=== PATIENT | female | born 1950 | race Caucasian/White ===

== ENCOUNTER → 2021-05-10 11:13 | Outpatient (BNVA) | payer MEDICARE, BC, SELFPAY | PROVIDERS: PCP Internal Medicine; Referring Provider Internal Medicine; Visit Provider Physician Assistant Surgical | DX: Z13.89 Encounter for screening for other disorder (principal) ==

== ENCOUNTER → 2021-06-04 08:15 | Outpatient (BNVA) | payer MEDICARE, BC, SELFPAY | PROVIDERS: PCP Internal Medicine; Visit Provider Surgery | DX: E66.9 Obesity, unspecified (principal); K21.9 Gastro-esophageal reflux disease without esophagitis; G47.30 Sleep apnea, unspecified; I10 Essential (primary) hypertension; E78.5 Hyperlipidemia, unspecified; J45.909 Unspecified asthma, uncomplicated; Z68.39 Body mass index [BMI] 39.0-39.9, adult | CPT/HCPCS: 99202 ==

== ENCOUNTER 2021-06-07 09:42 | Outpatient (REF) | payer MEDICARE, SELFPAY ==
--- NOTE | ~2021-06-07 | XR_ITS ---
EXAMINATION: XR CHEST CLINICAL INFORMATION: Moderate to severe obesity due to excess calories COMPARISON: None TECHNIQUE: 2 views of the chest were obtained. FINDINGS: The lungs are expanded and clear of acute process. Heart size and pulmonary vascularity are normal. There is no pleural effusion or pneumothorax. There is exaggerated thoracic kyphosis with mild anterior wedging of T6, T7, T8 vertebra likely chronic process. No acute fracture seen. There is moderate spondylosis throughout dorsal spine. XR/XR chest 2V IMPRESSION: Exaggerated thoracic kyphosis secondary wedge deformity of T6, T7 and T6 T8 vertebra.. No acute cardiopulmonary process seen.
[2021-06-07 10:21] LABS: MANUAL DIFF FLAG NO
[2021-06-07 10:59] LABS: Basophils Percent Auto 0.1 % (0-2); Eosinophils Absolute Auto 0.1 X10*3/uL (0.0-0.4); Eosinophils Percent Auto 1.4 % (0-4); Hematocrit 37.6 % (37.0-47.0); Hemoglobin 11.1 g/dl (12.0-16.0); Imm Gran Abs Auto 0.02 X10*3/uL (0.00-0.03); Imm Gran Pct Auto 0.3 % (0.0-0.4); Lymphocytes Absolute Auto 2.4 X10*3/uL (1.2-4.9); Lymphocytes Percent Auto 32.4 % (20-40); Mean Corpuscular HGB Conc 29.5 g/dl (31.0-35.0); Mean Corpuscular Hemoglobin 24.2 pg (27.0-33.0); Mean Corpuscular Volume 82.1 fL (80.0-98.0); Mean Platelet Volume 10.6 fL (9.4-12.3); Monocytes Absolute Auto 0.4 X10*3/uL (0.1-1.2); Monocytes Percent Auto 5.9 % (2-11); Neutrophils Absolute Auto 4.3 x10*3/uL (2.0-8.3); Neutrophils Percent Auto 59.9 % (45-73); Platelet Count 394 X10*3/uL (160-400); Red Blood Count 4.58 X10*6/uL (4.20-5.50); Red Cell Distribution Width 16.3 % (11.0-16.0); White Blood Count 7.3 X10*3/uL (4.8-10.8)
[2021-06-07 11:19] LABS: Estimated Average Glucose 137 mg/dL; Hemoglobin A1c % 6.4 %
[2021-06-07 11:23] LABS: Alanine Aminotransferase 15 U/L (0-31); Albumin Level 4.4 g/dL (3.5-5.0); Alkaline Phosphatase 165 U/L (39-117); Anion Gap 15 (12-20); Aspartate Amino Transferase 19 U/L (5-31); Bilirubin Total 0.4 mg/dL (0.0-1.0); Blood Urea Nitrogen 16 mg/dL (9-16); C Reactive Protein 1.86 mg/dL (< or = 0.50); Calcium 10.1 mg/dL (8.4-10.2); Carbon Dioxide 25 mmol/L (22-29); Chloride 107 mmol/L (96-108); Cholesterol 215 mg/dL; Estimated Glomerular Filt Rate > 60; Glucose Random 124 mg/dL (60-115); HDL Cholesterol 63 mg/dL; Iron 50 mcg/dL (30-160); LDL Cholesterol Calculated 132 mg/dl; Percent Iron Saturation 10 % (15-50); Potassium 4.8 mmol/L (3.3-5.1); Sodium 142 mmol/L (135-145); Total Iron Binding Capacity 505 mcg/dL (228-428); Total Protein 7.9 g/dL (6.5-8.0); Triglycerides 104 mg/dL; Unsaturated Iron Binding 455 ug/dL
[2021-06-07 11:48] LABS: Ferritin 9 ng/mL (10-250); Insulin 38 uU/mL (2-29); Vitamin D 25-OH Total 17.7 ng/mL (>30)
[2021-06-07 12:13] LABS: Folate 16.5 ng/mL (> or = 4.0); Vitamin B12 444 pg/mL (200-900)
[2021-06-08 14:31] LABS: Calcium (PTHI) 10.1 mg/dL (8.6-10.4); PTHI 57 pg/mL (16-77)
[2021-06-10 01:42] LABS: Zinc 86 mcg/dL (60-130)
[2021-06-11 06:56] LABS: Vitamin B1 32 nmol/L (8-30)
[2021-06-13 17:51] LABS: Vitamin A 59 mcg/dL (38-98)
== END 2021-06-07 09:43 | disposition home or self-care (01) ==
LOC: HO.XRAY 09:42
PROVIDERS: PCP Internal Medicine; Visit Provider Surgery
DX: E66.01 Morbid (severe) obesity due to excess calories (principal); E78.5 Hyperlipidemia, unspecified; G47.00 Insomnia, unspecified; G47.30 Sleep apnea, unspecified; I10 Essential (primary) hypertension; I73.9 Peripheral vascular disease, unspecified; J45.909 Unspecified asthma, uncomplicated; K21.9 Gastro-esophageal reflux disease without esophagitis; M54.9 Dorsalgia, unspecified
CPT/HCPCS: 36415; 71046; 80053; 80061; 82306; 82607; 82728; 82746; 83036; 83525; 83540; 83970; 84425; 84443; 84590; 84630; 85025; 86140

== ENCOUNTER → 2021-06-18 11:54 | Outpatient (REF) | payer MEDICARE, SELFPAY ==
--- NOTE | 2021-06-18 12:01 | ECG_ITS ---
Test Reason : MORBID OBESITY Blood Pressure : / mmHG Vent. Rate : 091 BPM Atrial Rate : 091 BPM P-R Int : 134 ms QRS Dur : 074 ms QT Int : 362 ms P-R-T Axes : 060 -18 038 degrees QTc Int : 445 ms Normal sinus rhythm Normal ECG No previous ECGs available Referred By: Rayo Frey Electronically Signed By:DYLLAN JENKINS MD
== END ==
LOC: HO.CARD 11:54
PROVIDERS: PCP Internal Medicine; Visit Provider Surgery
DX: Z01.818 Encounter for other preprocedural examination (principal); E66.01 Morbid (severe) obesity due to excess calories; I10 Essential (primary) hypertension; I73.9 Peripheral vascular disease, unspecified; J45.909 Unspecified asthma, uncomplicated
CPT/HCPCS: 93005

== ENCOUNTER → 2021-06-22 14:15 | Outpatient (BNVA) | payer MEDICARE, SELFPAY | PROVIDERS: PCP Internal Medicine; Visit Provider Counselor Mental Health | DX: Z13.89 Encounter for screening for other disorder (principal) ==

== ENCOUNTER 2021-07-01 11:47 | Day surgery (SDC) | payer MEDICARE, SELFPAY ==
--- NOTE | 2021-06-30 10:23 | HO.ANESPROP2 ---
Documented by User: Sindi Mejia NP 06/30/21 10:25 HPI - Anesthesia Eval Consult details Narrative: 70yo F for Upper Endoscopy PMFSH Active Problems Active Problems: All Active Problems (Updated 06/23/21 @ 15:37 by Steffi Barrera) Major depressive disorder, recurrent, mild (Acute) BMI 39.0-39.9,adult (Acute) Obesity (Acute) PVD (peripheral vascular disease) (Acute) GERD (gastroesophageal reflux disease) (Acute) Insomnia (Acute) Back pain (Acute) Hyperlipidemia (Acute) Asthma (Acute) Sleep apnea with use of continuous positive airway pressure (CPAP) (Acute) Hypertension (Acute) Morbid obesity (Acute) Past Medical History Medical History (Updated 06/23/21 @ 15:37 by Steffi Barrera) Asthma Back pain GERD (gastroesophageal reflux disease) Hyperlipidemia Hypertension Insomnia Morbid obesity Obesity PVD (peripheral vascular disease) Sleep apnea with use of continuous positive airway pressure (CPAP) Family History Family History (Updated 06/04/21 @ 14:33 by Gunjan Drake) Mother Diabetes Arthritis Alzheimer disease Father No problems noted. Brother Pancreas cancer Brother Heart problem Brother Depression Brother Depression Brother No problems noted. Brother No problems noted. Daughter No problems noted. Daughter No problems noted. Son Heart problem Son Kidney problem Surgical History Surgical History (Updated 06/04/21 @ 14:27 by Lizeth Kaur LPN) Hx of appendectomy Hx of hysterectomy Hx of tonsillectomy Social History Social History (Updated 06/04/21 @ 14:33 by Gunjan Drake) Alcohol intake: never Patient Tobacco Use Status: Never used Tobacco Meds Allergies Allergy/AdvReac Type Severity Reaction Status Date / Time salmon oil Allergy Intermediate Rash Verified 06/04/21 16:32 aspirin AdvReac Severe bleeding Verified 06/04/21 16:32 ulcer Home Medications Medication Instructions Recorded Confirmed Last Taken Type CPAP (CPAP Machine/Device) 06/04/21 06/04/21 Unknown History albuterol sulfate 90 mcg/actuation 2 puff INHALATION Q6H PRN 06/04/21 06/04/21 Unknown History aerosol inhaler (ProAir HFA) amitriptyline 50 mg tablet 50 mg PO BEDTIME 06/04/21 06/04/21 Unknown History amlodipine 10 mg tablet 10 mg PO DAILY 06/04/21 06/04/21 Unknown History atorvastatin 40 mg tablet 40 mg PO DAILY 06/04/21 06/04/21 Unknown History budesonide-formoterol HFA 160 2 puff INHALATION BID 06/04/21 06/04/21 Unknown History mcg-4.5 mcg/actuation aerosol inhaler (Symbicort) cyclobenzaprine 10 mg tablet 10 mg PO BID tab 06/04/21 06/04/21 Unknown History naproxen 500 mg tablet (Naprosyn) 500 mg PO BID 06/04/21 06/04/21 Unknown History omeprazole 40 mg capsule,delayed 40 mg PO BID 06/04/21 06/04/21 Unknown History release sertraline 100 mg tablet 100 mg PO DAILY 06/04/21 06/04/21 Unknown History venlafaxine 150 mg 150 mg PO DAILY 06/04/21 06/04/21 Unknown History capsule,extended release 24 hr Exam Exam Date and Time: June 30, 2021 1023 Pertinent Lab Results Pertinent Lab Results: Laboratory Tests 06/07/21 06/07/21 10:19 10:19 WBC 7.3 Hgb 11.1 L Hct 37.6 Plt Count 394 Sodium 142 Potassium 4.8 Chloride 107 Carbon Dioxide 25 BUN 16 Creatinine 0.81 Narrative Narrative: EKG 05/2021 Vent. Rate : 091 BPM ? ? Atrial Rate : 091 BPM ?? P-R Int : 134 ms? QRS Dur : 074 ms ? ? QT Int : 362 ms ? ? ? P-R-T Axes : 060 -18 038 degrees ?? QTc Int : 445 ms ? Normal sinus rhythm Normal ECG No previous ECGs available Assessment and Plan Assessment Anesthesia Assessment: Chart Reviewed Documented by User: Nav Buck MD 07/01/21 16:39 PMFSH Past Medical History Medical History (Updated 06/23/21 @ 15:37 by Steffi Barrera) Asthma Back pain GERD (gastroesophageal reflux disease) Hyperlipidemia Hypertension Insomnia Morbid obesity Obesity PVD (peripheral vascular disease) Sleep apnea with use of continuous positive airway pressure (CPAP) Family History Family History (Updated 06/04/21 @ 14:33 by Gunjan Drake) Mother Diabetes Arthritis Alzheimer disease Father No problems noted. Brother Pancreas cancer Brother Heart problem Brother Depression Brother Depression Brother No problems noted. Brother No problems noted. Daughter No problems noted. Daughter No problems noted. Son Heart problem Son Kidney problem Family history of problems with anesthesia: No Surgical History Surgical History (Updated 06/04/21 @ 14:27 by Lizeth Kaur LPN) Hx of appendectomy Hx of hysterectomy Hx of tonsillectomy History of Problems with Anesthesia: No Social History Social History (Updated 06/04/21 @ 14:33 by Gunjan Drake) Alcohol intake: never Patient Tobacco Use Status: Never used Tobacco Meds Allergies Allergy/AdvReac Type Severity Reaction Status Date / Time salmon oil Allergy Intermediate Rash Verified 06/04/21 16:32 aspirin AdvReac Severe bleeding Verified 06/04/21 16:32 ulcer Home Medications Medication Instructions Recorded Confirmed Last Taken Type CPAP (CPAP Machine/Device) 06/04/21 06/04/21 Unknown History albuterol sulfate 90 mcg/actuation 2 puff INHALATION Q6H PRN 06/04/21 06/04/21 Unknown History aerosol inhaler (ProAir HFA) amitriptyline 50 mg tablet 50 mg PO BEDTIME 06/04/21 06/04/21 Unknown History amlodipine 10 mg tablet 10 mg PO DAILY 06/04/21 06/04/21 Unknown History atorvastatin 40 mg tablet 40 mg PO DAILY 06/04/21 06/04/21 Unknown History budesonide-formoterol HFA 160 2 puff INHALATION BID 06/04/21 06/04/21 Unknown History mcg-4.5 mcg/actuation aerosol inhaler (Symbicort) cyclobenzaprine 10 mg tablet 10 mg PO BID tab 06/04/21 06/04/21 Unknown History naproxen 500 mg tablet (Naprosyn) 500 mg PO BID 06/04/21 06/04/21 Unknown History omeprazole 40 mg capsule,delayed 40 mg PO BID 06/04/21 06/04/21 Unknown History release sertraline 100 mg tablet 100 mg PO DAILY 06/04/21 06/04/21 Unknown History venlafaxine 150 mg 150 mg PO DAILY 06/04/21 06/04/21 Unknown History capsule,extended release 24 hr Exam Airway Mallampati Class: II TM Dist: >3cm Partial: Upper Loose/Missing/Broken Teeth: Yes Heart: rrr Lungs: bl breath sounds Assessment and Plan Assessment Anesthesia Assessment: Anesthesia Plan Discussed Final Anesthetic Review Family History of Problems with Anesthesia: No History of Problems with Anesthesia: No NPO: Yes ASA Class: III Final Preanesthetic Review: Meds/Allgs Chart Reviewed, Consent Obtained/Reviewed and Anes Risks/Benef Reviewed Patient Risk: Intermediate Procedure Risk: Intermediate Anesthetic Plan Anesthetic Plan: MAC: Disposition: Standard PACU
--- NOTE | 2021-06-30 17:44 | MHC.SHP ---
Pre-Procedural Eval Section A Date of Service: 06/30/21 The patient is an INPATIENT: No The History & Physical has been completed within 30 days and I have reviewed it.: Yes Section B Chief Complaint: reflux Relevant Family History (Specify if Yes): No Relevant Social History: None Present Medications: None Medical History: No relevant PMH History of Previous Operations: No relevant previous surgery Allergies: Allergies Allergy/AdvReac Type Severity Reaction Status Date / Time salmon oil Allergy Intermediate Rash Verified 06/04/21 16:32 aspirin AdvReac Severe bleeding Verified 06/04/21 16:32 ulcer Review of Systems Sugical H&P ROS: Negative: Constitution, Cardiovascular, Respiratory, Neurological, Psychiatric, Hem-Onc, Allergic/Immunologic, Gastrointestinal, Genitourinary, Musculoskeletal, Integumentary, Endocrine and Eyes/Ears/Nose/Throat Exam Surgical H&P Exam: Normal: HEENT, Normal: Heart, Normal: Lungs, Normal: Extremities, Normal: Abdomen, Normal: Skin and Normal: Neurological Plan Diagnosis/Plan: Unchanged (EGD to assess for esophagitis and H pylori. Patient us unable to be off the PPIs. Risksof bleeding and perforation were discussed with the patient.) I have reviewed the history and physical and performed a pertinent physical examination on my patient. No changes have occurred unless specified.
[2021-07-01 12:19] VITALS: BMI 39.1
[2021-07-01] MEDS: Lactated Ringers 1,000 ML 80 ML IVCONT (12:40)
--- NOTE | 2021-07-01 13:00 | P.BOP_ITS ---
Brief Operative Note Date of Service: 07/01/21 Pre-op diagnosis: GERD, inability to discontinue PPI Post-op diagnosis: same (& moderate size diaphragmatic hernia) Procedure: PROCEDURE DATE: 07/01/2021 PREOPERATIVE DIAGNOSIS: GERD POSTOPERATIVE DIAGNOSIS: ?Same as above. 1) moderate size hiatal hernia PROCEDURE: [id number] with biopsies Surgeon: ?Galdino Frey M.D.. Ph.D. Boiler Shop Supervisor: None ? Anesthesia: IV sedation Estimated blood loss: ?Minimal FINDINGS AND PROCEDURE: ? OPERATIVE INDICATIONS: ?The patient is a 70 year old female known to me who is interested in bariatric surgery. The patient has severe GERD and is unable to discontinue PPIs for 2 weeks to perform the H pylori breath test. Based on this information I recommended an upper endoscopy to evaluate the patient's symptoms. Risks and complications of the surgery were discussed with the patient in advance particularly the possibility of perforation or bleeding that may require surgical intervention. The patient understood the risks and was in agreement with the plan. ? PROCEDURE: After informed consent was obtained by the patient, the patient was ?transferred to the Operating Room and was placed in the supine position.? After successful induction of IV sedation, a mouth block was inserted and the patient was placed in the left lateral decubitus position. An upper endoscopy was performed next, the oropharynx and esophagus appeared within the normal limits. There was a moderate size 4-5cm hiatal hernia. The z- line was smooth. Two biopsies were obtained from the distal esohagus 2-3 cm proximal to the GE junction and two additional biopsies from the GE junction. The stomach was entered and it appeared to be of normal size. There was no gastritis at distal antrum. There was no stricture or ulcer. Biopsies were obtained from the gastric fundus as well as the distal antrum. No significant bleeding was noted from any of the biopsy sites. The scope was then advanced into the duodenum which appeared to be normal as well. At that point the duodenum ?and the sleeve were decompressed and the scope was withdrawn from the patient's mouth. The patient extubated and was transferred in stable condition to the Recovery Room for further care. I was present and performed all steps of the procedure. There were no residents to assist with this case. Galdino Frey M.D., Ph.D. Surgeon: Rayo Frey MD Anesthesia: MAC Was an Boiler Shop Supervisor used for this Procedure?: No Estimated blood loss (mL): 0 IV fluids (mL): 400 Urine output (mL): 0 (No Ly to record) Pathology: other (GEJ x1, distal esophagus, fundus x1, antrum x1) Condition: stable Disposition: PACU
[2021-07-01 13:46] VITALS: BP 126/76; PULSE 87; RESP 16; TEMP 36.4; O2SAT 95
[2021-07-01 14:00] VITALS: BP 137/71; PULSE 79; RESP 16; O2SAT 97
[2021-07-01 14:15] VITALS: BP 134/65; PULSE 79; RESP 16; TEMP 36.4; O2SAT 97
== END 2021-07-01 15:26 | disposition home or self-care (01) ==
PROVIDERS: PCP Internal Medicine; Visit Provider Surgery
PROC: 0DJ08ZZ Inspection of Upper Intestinal Tract, Via Natural or Artificial Opening Endoscopic (ICD-10-PCS; CPT 43235; principal; 2021-07-01 12:50)
DX: K21.9 Gastro-esophageal reflux disease without esophagitis (principal); K22.70 Barrett's esophagus without dysplasia; B96.81 Helicobacter pylori [H. pylori] as the cause of diseases classified elsewhere; K44.9 Diaphragmatic hernia without obstruction or gangrene; E66.01 Morbid (severe) obesity due to excess calories; Z68.39 Body mass index [BMI] 39.0-39.9, adult; M54.9 Dorsalgia, unspecified; J45.909 Unspecified asthma, uncomplicated; I10 Essential (primary) hypertension; I73.9 Peripheral vascular disease, unspecified; G47.00 Insomnia, unspecified; G47.33 Obstructive sleep apnea (adult) (pediatric); E78.5 Hyperlipidemia, unspecified; Z79.899 Other long term (current) drug therapy; Z88.8 Allergy status to other drugs, medicaments and biological substances; Z99.89 Dependence on other enabling machines and devices
CPT/HCPCS: 43239; 88305; 88342

== ENCOUNTER → 2021-07-05 14:42 | Outpatient (BNVA) | payer MEDICARE, SELFPAY | PROVIDERS: PCP Internal Medicine; Referring Provider Internal Medicine; Visit Provider Dietitian, Registered | DX: E66.9 Obesity, unspecified (principal) | CPT/HCPCS: 97802 ==

== ENCOUNTER → 2021-07-13 10:30 | Outpatient (BNVA) | payer OTHER, MEDICARE, SELFPAY | PROVIDERS: PCP Internal Medicine; Visit Provider Counselor Mental Health | DX: F33.0 Major depressive disorder, recurrent, mild (principal); E66.9 Obesity, unspecified | CPT/HCPCS: 90832 ==

== ENCOUNTER → 2021-07-16 11:58 | Outpatient (BNVA) | payer MEDICARE, SELFPAY | PROVIDERS: PCP Internal Medicine; Referring Provider Internal Medicine; Visit Provider Physician Assistant | DX: Z13.89 Encounter for screening for other disorder (principal) ==

== ENCOUNTER → 2021-07-19 08:03 | Outpatient (BNVA) | payer MEDICARE, SELFPAY | PROVIDERS: PCP Internal Medicine; Visit Provider Surgery | DX: Z13.89 Encounter for screening for other disorder (principal) | CPT/HCPCS: Q3014 ==

== ENCOUNTER → 2021-07-27 11:06 | Outpatient (BNVA) | payer MEDICARE, SELFPAY | PROVIDERS: PCP Internal Medicine; Visit Provider Physician Assistant | DX: Z13.89 Encounter for screening for other disorder (principal) ==

== ENCOUNTER → 2021-08-05 13:40 | Outpatient (BNVA) | payer MEDICARE, SELFPAY | PROVIDERS: PCP Internal Medicine; Referring Provider Surgery; Visit Provider Dietitian, Registered | DX: E66.9 Obesity, unspecified (principal); Z68.38 Body mass index [BMI] 38.0-38.9, adult | CPT/HCPCS: 97803 ==

== ENCOUNTER 2021-08-10 09:29 | Outpatient (REF) | payer MEDICARE, SELFPAY ==
--- NOTE | ~2021-08-10 | US_ITS ---
EXAMINATION: US COMPLETE ABDOMEN WITH LIVER ELASTOGRAPHY CLINICAL INFORMATION: Morbid obesity COMPARISON: March 24, 2016 TECHNIQUE: Real-time imaging of the abdominal viscera. Noninvasive ultrasound liver fibrosis assessment is performed using Hao ElastPQ point quantification shear wave elastography (2D-SWE) with a C5-2 MHz transducer. Multiple elastography samples are obtained. FINDINGS: PANCREAS: Normal. The visualized pancreatic head and body are normal in appearance. The remainder of the pancreas is obscured from visualization by the overlying bowel gas. ABDOMINAL AORTA: The proximal, middle, and distal aortic segments are normal in caliber. INFERIOR VENA CAVA: Visualized portions are normal. LIVER: There is diffusely increased echogenicity of the liver consistent with fatty infiltration. No mass or intrahepatic bile duct dilatation identified. The right lobe measures 14.4 cm in length. The left lobe measures 10.4 cm in length. Portal flow is hepatopedal Shear wave liver elastography median stiffness is 2.45 m/s (reference: normal median stiffness is 1.3 m/s or less). IQR/median stiffness to assess sampling precision is 0.14 (reference: good quality data set is IQR/median stiffness of 0.15 or less). GALLBLADDER: Normal. The gallbladder is physiologically distended without evidence of stones, sludge, polyps, wall thickening or pericholecystic fluid. COMMON BILE DUCT: Normal in caliber measuring 0.6 cm in diameter. RIGHT KIDNEY: Normal. No hydronephrosis. No renal calculi or focal parenchymal lesions. The kidney measures 10.5 cm in maximum dimension. LEFT KIDNEY: Normal. No hydronephrosis. No renal calculi or focal parenchymal lesions. The kidney measures 10.4 cm in maximum dimension. SPLEEN: Normal. The spleen measures 10.1 cm in maximum dimension. FREE FLUID: None. US/US abdomen comp w elastography IMPRESSION: 1. Diffusely increased echogenicity of the liver consistent with fatty infiltration. 2. Liver elastography: Measurements are suggestive of clinically significant portal hypertension. REFERENCE: Society of Radiologists in Ultrasound Liver Stiffness Thresholds (2020): LIVER STIFFNESS THRESHOLDS: *Liver Stiffness equal or less than 1.3 m/s: High probability of being normal. *Liver Stiffness less than 1.7 m/s: In the absence of other known clinical signs, rules out compensated advanced chronic liver disease. *Liver Stiffness 1.7-2.1 m/s: Suggestive of compensated advanced chronic liver disease but need further test for confirmation. *Liver Stiffness over 2.1 m/s: Rules in compensated advanced chronic liver disease. *Liver Stiffness over 2.4 m/s: Suggestive of clinically significant portal hypertension. QUALITY OF DATA SET: *IQR/Median value equal or less than 0.15 implies a quality data set. *IQR/Median value over 0.15 implies a poor quality data set. SIGNIFICANT CHANGE FROM PRIOR EXAM: Significant change if liver stiffness measurement is 10% or greater from prior exam. OTHER CONSIDERATIONS: The stage of liver fibrosis may be overestimated in the setting of acute hepatitis, liver inflammation, elevated liver function tests, hepatic vascular congestion, obstructive cholestasis, non-fasting state, and infiltrative diseases such as amyloidosis and lymphoma. In some patients with NAFLD, the liver stiffness thresholds for compensated advanced chronic liver disease may be lower. In causes other than viral hepatitis and NAFLD, liver stiffness thresholds are not well established.
--- NOTE | ~2021-08-10 | FL_ITS ---
EXAMINATION: XR FLUOROSCOPY UPPER GI WITH AIR CLINICAL INFORMATION: Obesity. Preop bariatric surgery COMPARISON: None TECHNIQUE: Upper GI was performed using thin and thick barium and effervescent granules FINDINGS: There is significant gastroesophageal reflux. There is a small sliding hiatal hernia. There are tertiary contractions in the esophagus and mild mucosal irregularity questionable for mild esophagitis. No mass or stricture is seen. Stomach and duodenum are otherwise normal appearing. No fold thickening, mass, ulcer or stricture is seen. FLUOROSCOPY TIME: 0.9 DOSE AREA PRODUCT: 9.2 Viveros per centimeter squared. 31 saved fluoroscopic images. FL/FL upper GI w air IMPRESSION: Significant gastroesophageal reflux and question esophagitis. Small sliding-type hiatal hernia.
== END 2021-08-10 09:30 | disposition home or self-care (01) ==
LOC: HO.US 09:29
PROVIDERS: Visit Provider Surgery
DX: Z01.818 Encounter for other preprocedural examination (principal); E66.01 Morbid (severe) obesity due to excess calories; K21.9 Gastro-esophageal reflux disease without esophagitis; I10 Essential (primary) hypertension; I73.9 Peripheral vascular disease, unspecified; J45.909 Unspecified asthma, uncomplicated
CPT/HCPCS: 74246; 76705; 76981

== ENCOUNTER → 2021-08-30 11:39 | Outpatient (BNVA) | payer MEDICARE, SELFPAY | PROVIDERS: PCP Internal Medicine; Visit Provider Physician Assistant | DX: Z13.89 Encounter for screening for other disorder (principal) ==

== ENCOUNTER 2021-09-13 12:12 | Day surgery (SDC) | payer MEDICARE, SELFPAY ==
--- NOTE | 2021-09-10 14:23 | HO.ANESPROP2 ---
HPI - Anesthesia Eval Consult details Narrative: 70yo F for Upper Endoscopy PMFSH Active Problems Active Problems: All Active Problems (Updated 07/19/21 @ 10:17 by Rayo Frey MD) Vitamin B12 deficiency (Acute) Vitamin D deficiency (Acute) Anemia (Acute) Major depressive disorder, recurrent, mild (Acute) BMI 39.0-39.9,adult (Acute) Obesity (Acute) PVD (peripheral vascular disease) (Acute) GERD (gastroesophageal reflux disease) (Acute) Insomnia (Acute) Back pain (Acute) Hyperlipidemia (Acute) Asthma (Acute) Sleep apnea with use of continuous positive airway pressure (CPAP) (Acute) Hypertension (Acute) Morbid obesity (Acute) Past Medical History Medical History Anemia Asthma GERD (gastroesophageal reflux disease) Hyperlipidemia Hypertension Major depressive disorder, recurrent, mild Morbid obesity PVD (peripheral vascular disease) Sleep apnea with use of continuous positive airway pressure (CPAP) Family History Family History Mother Diabetes Arthritis Alzheimer disease Father No problems noted. Brother Pancreas cancer Brother Heart problem Brother Depression Brother Depression Brother No problems noted. Brother No problems noted. Daughter No problems noted. Daughter No problems noted. Son Heart problem Son Kidney problem Family history of problems with anesthesia: No Surgical History Surgical History (Updated 06/04/21 @ 14:27 by Lizeth Kaur LPN) Hx of appendectomy Hx of hysterectomy Hx of tonsillectomy History of Problems with Anesthesia: No Social History Social History (Updated 06/04/21 @ 14:33 by Gunjan Drake) Alcohol intake: never Patient Tobacco Use Status: Never used Tobacco Meds Allergies Allergy/AdvReac Type Severity Reaction Status Date / Time salmon oil Allergy Intermediate Rash Verified 06/04/21 16:32 Iodinated Contrast Media Allergy Hives Verified 09/13/21 13:09 [IV Contrast Dye] aspirin AdvReac Severe bleeding Verified 06/04/21 16:32 ulcer Home Medications Medication Instructions Recorded Confirmed Last Taken Type CPAP (CPAP Machine/Device) 06/04/21 06/04/21 Unknown History albuterol sulfate 90 mcg/actuation 2 puff inhalation Q6H PRN 06/04/21 06/04/21 Unknown History aerosol inhaler (ProAir HFA) amitriptyline 50 mg tablet 50 mg PO BEDTIME 06/04/21 06/04/21 Unknown History amlodipine 10 mg tablet 10 mg PO DAILY 06/04/21 06/04/21 Unknown History atorvastatin 40 mg tablet 40 mg PO DAILY 06/04/21 06/04/21 Unknown History budesonide-formoterol HFA 160 2 puff inhalation BID 06/04/21 06/04/21 Unknown History mcg-4.5 mcg/actuation aerosol inhaler (Symbicort) cyclobenzaprine 10 mg tablet 10 mg PO BID 06/04/21 06/04/21 Unknown History naproxen 500 mg tablet (Naprosyn) 500 mg PO BID 06/04/21 06/04/21 Unknown History sertraline 100 mg tablet 100 mg PO DAILY 06/04/21 06/04/21 Unknown History venlafaxine 150 mg 150 mg PO DAILY 06/04/21 06/04/21 Unknown History capsule,extended release 24 hr Exam Exam Date and Time: September 10, 2021 1423 Pertinent Lab Results Pertinent Lab Results: Laboratory Tests 06/07/21 06/07/21 10:19 10:19 WBC 7.3 Hgb 11.1 L Hct 37.6 Plt Count 394 Sodium 142 Potassium 4.8 Chloride 107 Carbon Dioxide 25 BUN 16 Creatinine 0.81 Narrative Narrative: EKG 05/2021 Vent. Rate : 091 BPM ? ? Atrial Rate : 091 BPM ?? P-R Int : 134 ms? QRS Dur : 074 ms ? ? QT Int : 362 ms ? ? ? P-R-T Axes : 060 -18 038 degrees ?? QTc Int : 445 ms ? Normal sinus rhythm Normal ECG No previous ECGs available Assessment and Plan Assessment Anesthesia Assessment: Chart Reviewed Final Anesthetic Review Family History of Problems with Anesthesia: No History of Problems with Anesthesia: No
--- NOTE | 2021-09-11 09:53 | MHC.SHP ---
Pre-Procedural Eval Section A Date of Service: 09/11/21 The History & Physical has been completed within 30 days and I have reviewed it.: Yes Section B Chief Complaint: reflux,h.pylori Relevant Family History (Specify if Yes): No Relevant Social History: None Present Medications: None Medical History: No relevant PMH History of Previous Operations: No relevant previous surgery Allergies: Allergies Allergy/AdvReac Type Severity Reaction Status Date / Time salmon oil Allergy Intermediate Rash Verified 06/04/21 16:32 aspirin AdvReac Severe bleeding Verified 06/04/21 16:32 ulcer Review of Systems Sugical H&P ROS: Negative: Constitution, Cardiovascular, Respiratory, Neurological, Psychiatric, Hem-Onc, Allergic/Immunologic, Gastrointestinal, Genitourinary, Musculoskeletal, Integumentary, Endocrine and Eyes/Ears/Nose/Throat Exam Surgical H&P Exam: Normal: HEENT, Normal: Heart, Normal: Lungs, Normal: Extremities, Normal: Abdomen, Normal: Skin and Normal: Neurological Plan Diagnosis/Plan: Unchanged (EGD to assess GERD severity and hiatal hernia. Unable to stop PPI for H pylori. Risks of bleeding and perforation were discussed) I have reviewed the history and physical and performed a pertinent physical examination on my patient. No changes have occurred unless specified.
[2021-09-13 12:37] VITALS: BMI 35.6
[2021-09-13 12:38] VITALS: BP 151/73; PULSE 100; RESP 18; TEMP 36.9; O2SAT 97
[2021-09-13] MEDS: Lactated Ringers 1,000 ML 100 ML IVCONT (12:49)
--- NOTE | 2021-09-13 13:15 | HO.ANESPROP2 ---
[facility] Active Problems Active Problems: All Active Problems (Updated 09/10/21 @ 14:24 by Sindi Mejia NP) Vitamin B12 deficiency (Acute) Vitamin D deficiency (Acute) BMI 39.0-39.9,adult (Acute) Obesity (Acute) Insomnia (Acute) Back pain (Acute) Past Medical History Medical History Anemia Asthma GERD (gastroesophageal reflux disease) Hyperlipidemia Hypertension Major depressive disorder, recurrent, mild Morbid obesity PVD (peripheral vascular disease) Sleep apnea with use of continuous positive airway pressure (CPAP) Family History Family History Mother Diabetes Arthritis Alzheimer disease Father No problems noted. Brother Pancreas cancer Brother Heart problem Brother Depression Brother Depression Brother No problems noted. Brother No problems noted. Daughter No problems noted. Daughter No problems noted. Son Heart problem Son Kidney problem Family history of problems with anesthesia: No Surgical History Surgical History (Updated 06/04/21 @ 14:27 by Lizeth Kaur LPN) Hx of appendectomy Hx of hysterectomy Hx of tonsillectomy History of Problems with Anesthesia: No Social History Social History (Updated 06/04/21 @ 14:33 by Gunjan Drake) Alcohol intake: never Patient Tobacco Use Status: Never used Tobacco Use of substances other than those prescribed or required for medical reasons: No Are you DNR?: No Advance Directives: No Advance Directives Information Provided: Yes Meds Allergies Allergy/AdvReac Type Severity Reaction Status Date / Time salmon oil Allergy Intermediate Rash Verified 06/04/21 16:32 Iodinated Contrast Media Allergy Hives Verified 09/13/21 13:09 [IV Contrast Dye] aspirin AdvReac Severe bleeding Verified 06/04/21 16:32 ulcer Active Medications: Current Medications Albuterol Sulfate (Albuterol Sulfate (0.083%) 2.5 Mg/3 Ml Vial.Neb) 2.5 mg INHALE ONCE PRN PRN Reason: Shortness of Breath/Wheezing Lactated Ringer's (Lr) 1,000 mls @ 80 mls/hr IVCONT .[id number] HALLIE Lactated Ringer's (Lr) 1,000 mls @ 100 mls/hr IVCONT .Q10H HALLIE Last Admin: 09/13/21 12:49 Dose: 100 mls/hr Home Medications Medication Instructions Recorded Confirmed Last Taken Type CPAP (CPAP Machine/Device) 06/04/21 06/04/21 Unknown History albuterol sulfate 90 mcg/actuation 2 puff inhalation Q6H PRN 06/04/21 06/04/21 Unknown History aerosol inhaler (ProAir HFA) amitriptyline 50 mg tablet 50 mg PO BEDTIME 06/04/21 06/04/21 Unknown History amlodipine 10 mg tablet 10 mg PO DAILY 06/04/21 06/04/21 Unknown History atorvastatin 40 mg tablet 40 mg PO DAILY 06/04/21 06/04/21 Unknown History budesonide-formoterol HFA 160 2 puff inhalation BID 06/04/21 06/04/21 Unknown History mcg-4.5 mcg/actuation aerosol inhaler (Symbicort) cyclobenzaprine 10 mg tablet 10 mg PO BID 06/04/21 06/04/21 Unknown History naproxen 500 mg tablet (Naprosyn) 500 mg PO BID 06/04/21 06/04/21 Unknown History sertraline 100 mg tablet 100 mg PO DAILY 06/04/21 06/04/21 Unknown History venlafaxine 150 mg 150 mg PO DAILY 06/04/21 06/04/21 Unknown History capsule,extended release 24 hr Exam Exam Date and Time: September 13, 2021 1315 Height,Weight and Vital Signs: Height 5 ft 6 in Weight 100.244 kg Last Vital Signs Temp 98.5 F 09/13/21 12:38 Pulse 100 09/13/21 12:38 Resp 18 09/13/21 12:38 BP 151/73 H 09/13/21 12:38 Pulse Ox 97 09/13/21 12:38 O2 Del Method 09/13/21 12:38 Airway Mallampati Class: III TM Dist: >3cm Neck ROM: Full Denture: Upper Loose/Missing/Broken Teeth: No Heart: rrr Lungs: clear Assessment and Plan Final Anesthetic Review Family History of Problems with Anesthesia: No History of Problems with Anesthesia: No NPO: Yes ASA Class: III Final Preanesthetic Review: No Changes in Pt Med Stat, Meds/Allgs Chart Reviewed, Consent Obtained/Reviewed and Anes Risks/Benef Reviewed Patient Risk: Intermediate Procedure Risk: Low Anesthetic Plan Anesthetic Plan: MAC: Disposition: Standard PACU
--- NOTE | 2021-09-13 14:18 | PM.OP ---
Brief Operative Note Date of Service: 09/13/21 Pre-op diagnosis: GERD, inability to discontinue PPI for H pylori testing Post-op diagnosis: same Procedure: PROCEDURE DATE: 09/13/2021 PREOPERATIVE DIAGNOSIS: GERD POSTOPERATIVE DIAGNOSIS: ?Same as above. 1) moderate-sizel hiatal hernia, PROCEDURE: [id number] with biopsies Surgeon: ?Galdino Frey M.D.. Ph.D. Account Administrator: None ? Anesthesia: IV sedation Estimated blood loss: ?Minimal FINDINGS AND PROCEDURE: ? OPERATIVE INDICATIONS: ?The patient is a 70 year old female known to me who is interested in bariatric surgery. The patient has severe GERD and is unable to discontinue PPIs for 2 weeks to perform the H pylori breath test. Based on this information I recommended an upper endoscopy to evaluate the patient's symptoms. Risks and complications of the surgery were discussed with the patient in advance particularly the possibility of perforation or bleeding that may require surgical intervention. The patient understood the risks and was in agreement with the plan. ? PROCEDURE: After informed consent was obtained by the patient, the patient was ?transferred to the Operating Room and was placed in the supine position.? After successful induction of IV sedation, a mouth block was inserted and the patient was placed in the left lateral decubitus position. An upper endoscopy was performed next, the oropharynx and esophagus appeared within the normal limits. There was a 4cm hiatal hernia (Z-line at 34cm and crural identation at 38cm from incisors).. The z-line was smooth. Two biopsies were obtained from the distal esohagus 2-3 cm proximal to the GE junction and two additional biopsies from the GE junction. The stomach was entered and it appeared to be of normal size. There was mild gastritis at distal antrum. There was no stricture or ulcer. Biopsies were obtained from the proximal sleeve as well as the distal antrum. No significant bleeding was noted from any of the biopsy sites. The scope was then advanced into the duodenum which appeared to be normal as well. A biopsy was obtained from the proximal duodenum as well. At that point the duodenum ?and the sleeve were decompressed and the scope was withdrawn from the patient's mouth. The patient extubated and was transferred in stable condition to the Recovery Room for further care. I was present and performed all steps of the procedure. There were no residents to assist with this case. Galdino Frey M.D., Ph.D. Surgeon: Rayo Frey MD Anesthesia: MAC Was an Account Administrator used for this Procedure?: No Estimated blood loss (mL): 0 IV fluids (mL): 400 Urine output (mL): 0 (No Ly to record) Pathology: other (1) GEJ x2, 2) distal esophagus x2, 3) proximal sleeve x1, 4) antrum x1, 5) duodenum 1st portion x1) Condition: stable Disposition: PACU
[2021-09-13 14:46] VITALS: BP 144/80; PULSE 93; RESP 20; TEMP 36.3; O2SAT 97
[2021-09-13 15:01] VITALS: BP 153/65; PULSE 89; RESP 20; TEMP 36.7; O2SAT 98
== END 2021-09-13 16:00 | disposition home or self-care (01) ==
PROVIDERS: PCP Internal Medicine; Visit Provider Surgery
PROC: 0DJ08ZZ Inspection of Upper Intestinal Tract, Via Natural or Artificial Opening Endoscopic (ICD-10-PCS; CPT 43235; principal; 2021-09-13 13:30)
DX: K21.9 Gastro-esophageal reflux disease without esophagitis (principal); B96.81 Helicobacter pylori [H. pylori] as the cause of diseases classified elsewhere; K44.9 Diaphragmatic hernia without obstruction or gangrene; E78.5 Hyperlipidemia, unspecified; J45.909 Unspecified asthma, uncomplicated; D64.9 Anemia, unspecified; I10 Essential (primary) hypertension; E55.9 Vitamin D deficiency, unspecified; E53.8 Deficiency of other specified B group vitamins; E66.9 Obesity, unspecified; Z68.39 Body mass index [BMI] 39.0-39.9, adult; Z79.899 Other long term (current) drug therapy; Z88.8 Allergy status to other drugs, medicaments and biological substances; Z91.041 Radiographic dye allergy status
CPT/HCPCS: 43239; 88305; 88342

== ENCOUNTER → 2021-09-14 09:15 | Outpatient (BNVA) | payer MEDICARE, SELFPAY | PROVIDERS: PCP Internal Medicine; Visit Provider Dietitian, Registered | DX: E66.9 Obesity, unspecified (principal); Z68.36 Body mass index [BMI] 36.0-36.9, adult; Z71.3 Dietary counseling and surveillance | CPT/HCPCS: 97803 ==

== ENCOUNTER → 2021-10-01 11:33 | Outpatient (BNVA) | payer MEDICARE, SELFPAY | PROVIDERS: PCP Internal Medicine; Visit Provider Physician Assistant Surgical | DX: E66.9 Obesity, unspecified (principal); Z68.38 Body mass index [BMI] 38.0-38.9, adult | CPT/HCPCS: 99212 ==

== ENCOUNTER → 2021-10-29 13:02 | Outpatient (BNVA) | payer MEDICARE, SELFPAY | PROVIDERS: PCP Internal Medicine; Visit Provider Dietitian, Registered | DX: E66.01 Morbid (severe) obesity due to excess calories (principal); Z68.39 Body mass index [BMI] 39.0-39.9, adult | CPT/HCPCS: 97803 ==

== ENCOUNTER → 2021-11-18 14:18 | Outpatient (BNVA) | payer MEDICARE, SELFPAY | PROVIDERS: PCP Internal Medicine; Visit Provider Dietitian, Registered | DX: E66.9 Obesity, unspecified (principal); Z68.38 Body mass index [BMI] 38.0-38.9, adult; Z71.3 Dietary counseling and surveillance | CPT/HCPCS: 97803 ==

== ENCOUNTER → 2021-12-01 08:12 | Outpatient (BNVA) | payer MEDICARE, SELFPAY | PROVIDERS: PCP Internal Medicine; Visit Provider Surgery | DX: E66.9 Obesity, unspecified (principal); Z68.38 Body mass index [BMI] 38.0-38.9, adult | CPT/HCPCS: Q3014 ==

== ENCOUNTER → 2021-12-31 08:26 | Outpatient (BNVA) | payer MEDICARE, SELFPAY | PROVIDERS: PCP Internal Medicine; Visit Provider Surgery | DX: E66.9 Obesity, unspecified (principal); K21.9 Gastro-esophageal reflux disease without esophagitis; G47.30 Sleep apnea, unspecified; Z68.37 Body mass index [BMI] 37.0-37.9, adult | CPT/HCPCS: Q3014 ==

== ENCOUNTER → 2022-04-25 14:37 | Outpatient (BNVA) | payer MEDICARE, SELFPAY | PROVIDERS: PCP Internal Medicine; Visit Provider Internal Medicine | DX: G90.529 Complex regional pain syndrome I of unspecified lower limb (principal); M47.816 Spondylosis without myelopathy or radiculopathy, lumbar region; M17.0 Bilateral primary osteoarthritis of knee | CPT/HCPCS: 99202 ==

== ENCOUNTER 2022-08-03 06:03 | Outpatient (REF) | payer MEDICARE, SELFPAY ==
--- NOTE | ~2022-08-03 | FL_ITS ---
EXAMINATION: XR FLUOROSCOPY WITH IMAGES CLINICAL INFORMATION: Lower limb complex regional pain syndrome COMPARISON: None available. TECHNIQUE: Fluoroscopy Supervised By: Dr. Itz Chavez. Fluoroscopy Time: 0.4. Cumulative Dose: 25 mGy. DAP: 3 Gycm2. Images: 4. FINDINGS: Images demonstrate needle placement and contrast injection adjacent to the right anterior lateral L2 vertebral body FL/FL guidance in treatment room IMPRESSION: Fluoroscopic guidance for pain management procedure
== END 2022-08-03 06:04 | disposition home or self-care (01) ==
LOC: CF 06:03
PROVIDERS: Visit Provider Internal Medicine
DX: G90.521 Complex regional pain syndrome I of right lower limb (principal)
CPT/HCPCS: 64520; J3301

== ENCOUNTER → 2022-08-19 10:30 | Outpatient (BNVA) | payer MEDICARE, SELFPAY | PROVIDERS: PCP Internal Medicine; Visit Provider Internal Medicine | DX: M47.816 Spondylosis without myelopathy or radiculopathy, lumbar region (principal); M54.16 Radiculopathy, lumbar region; M79.671 Pain in right foot; M79.672 Pain in left foot; M17.0 Bilateral primary osteoarthritis of knee; G90.529 Complex regional pain syndrome I of unspecified lower limb | CPT/HCPCS: 99212 ==

== ENCOUNTER → 2022-09-02 08:18 | Outpatient (BNVA) | payer MEDICARE, SELFPAY | PROVIDERS: PCP Internal Medicine; Visit Provider Internal Medicine | DX: G90.529 Complex regional pain syndrome I of unspecified lower limb (principal) | CPT/HCPCS: 99212 ==

== ENCOUNTER 2023-12-29 08:26 | Outpatient (AMB) | payer MEDICARE, SELFPAY ==
--- NOTE | 2023-12-29 08:29 | A.OFFVIS_ITS ---
Vital Signs 12/29/23 08:30 Height 5 ft 5 in Weight 193 lb BMI 32.1 BP 124/56 L Blood Pressure Location Lt brachial Position Sitting Respiration 16 Pulse 110 H Pulse Source Pulse Oximeter Pulse Oximetry (%) 100 Oxygen Delivery Method Room Air Intake Visit Reasons: F/U to repeat inj Allergies Iodinated Contrast Media [IV Contrast Dye] Allergy (Intermediate, Verified 12/29/23 08:31) Hives salmon oil Allergy (Intermediate, Verified 12/29/23 08:31) Rash aspirin Adverse Reaction (Severe, Verified 12/29/23 08:31) bleeding ulcer Medication List - Last Reconciled 12/29/23 by Herlinda Collier LPN albuterol sulfate 90 mcg/actuation (ProAir HFA) 2 puffs inhalation Q6H PRN amitriptyline 50 mg PO BEDTIME bismuth subsalicylate (Bismuth) 2 tabs PO QID 10 days budesonide-formoterol 160-4.5 mcg/actuation (Symbicort) 2 puffs inhalation BID CPAP (CPAP Machine/Device) As directed cyclobenzaprine 10 mg PO BID PRN naproxen (Naprosyn) 500 mg PO BID PRN omeprazole 40 mg PO BID tramadol 100 mg PO BID HPI HPI F/U to repeat inj: Details: 73-year-old female who presents today to the office for a follow up to repeat injection. She reports leg pain and tenderness in her knees. She reports difficulty walking. She notices some weakness in her leg. She states that her pain lasts for two weeks. She has been receiving cortisone injections in her knee for pain by her orthopedics but these have not been helpful lately. Her current knee pain is different from the knee pain that she previously had that resolved with the lumbar sympathetic block. Past procedure: 08/03/22: Lumbar Sympathetic Block, right: 100 % relief for right medial knee CRPS. [facility], [facility] Medical History (Updated 08/19/22 @ 11:01 by Itz Chavez MD) Renal calculi May-Thurner syndrome Fibromyalgia TIA (transient ischemic attack) Sleep apnea Anemia Major depressive disorder, recurrent, mild PVD (peripheral vascular disease) GERD (gastroesophageal reflux disease) Insomnia Back pain Hyperlipidemia Asthma Hypertension Morbid obesity Surgical History (Updated 12/29/21 @ 11:45 by Prisca Doshi RN) History of carpal tunnel release History of surgery H/O colonoscopy Hx of lithotripsy History of esophagogastroduodenoscopy (EGD) Hx of tonsillectomy Hx of appendectomy Hx of hysterectomy Family History Mother Diabetes Arthritis Alzheimer disease Father No problems noted. Brother Pancreas cancer Brother Heart problem Brother Depression Brother Depression Brother No problems noted. Brother No problems noted. Daughter No problems noted. Daughter No problems noted. Son Heart problem Son Kidney problem Social History Household Members Other:: daughter Are you a primary managed care specialist to a significant other at home: No Do you presently have visiting nurse or other home services: No Alcohol intake: never Patient Tobacco Use Status: Never used Tobacco Review of Systems Const All systems reviewed & are unremarkable except as noted in HPI and below Physical Exam Vital Signs: Last Vital Signs Pulse 110 H 12/29/23 08:30 Resp 16 12/29/23 08:30 BP 124/56 L 12/29/23 08:30 Pulse Ox 100 12/29/23 08:30 Oxygen Delivery Method Room Air 12/29/23 08:30 BMI result Body Mass Index 32.1 General: Appears afebrile. Alert and oriented. Mood and affect appropriate. Follows and participates in conversation appropriately. Respiratory effort is unlabored. Able to transition from sit to stand unassisted. Ambulates with bilaterally normal heel strike and toe off. Results Reviewed Results Reviewed: No imaging is available for review. Assessment & Plan Assessment & Plan (1) Lumbar radicular pain: Code(s): M54.16 - Radiculopathy, lumbar region Category: Medical (2) Lumbar spondylosis: Code(s): M47.816 - Spondylosis without myelopathy or radiculopathy, lumbar region Category: Medical Plan Discussed diagnostic injections as the first possible treatment option prior to proceed with other interventional treatment. We will schedule her for a right diagnostic saphenous nerve block. Discussed the risks and benefits of the procedure with the patient in detail. All questions were answered. The patient is on board with the plan. Justification for interventional therapy: ? Patient with average pain > 6/10 ? Patient has exhausted conservative therapy ? Actively performing physical therapy. ? Previous Sympathetic Block injection provided 100% relief. . Patient has a good understanding of their pain condition and has appropriate mental and social support A referral was provided to physical therapy. The patient will receive a call to schedule an appointment. I also ordered an x-ray of the bilateral knee for further evaluation. Scribed for Dr. Chavez by Cornelius Kerns, medical certification specialist, on 12/29/2023. I, Dr. Chavez, have personally reviewed and agree with the information entered by the scribe. Orders: Orders PT Evaluation and Treatment 12/29/23 M54.16 - Radiculopathy, lumbar region, M47.816 - Spondylosis without myelopathy or radiculopathy, lumbar region XR knee standing BI 12/29/23 M17.0 - Bilateral primary osteoarthritis of knee Coding Level of Care Code Est Pt Level 3 (27545) Diagnoses Lumbar radicular pain M54.16 Lumbar spondylosis M47.816
[2023-12-29 08:30] VITALS: BP 124/56; PULSE 110; RESP 16; O2SAT 100; BMI 32.1
== END 2023-12-29 08:41 | disposition home or self-care (01) ==
PROVIDERS: PCP Internal Medicine; Visit Provider Internal Medicine
DX: M54.16 Radiculopathy, lumbar region (principal); M47.816 Spondylosis without myelopathy or radiculopathy, lumbar region
CPT/HCPCS: 99213

== ENCOUNTER 2023-12-29 08:26 | Outpatient (REF) | payer MEDICARE, SELFPAY | END 2023-12-29 08:27 | disposition home or self-care (01) | LOC: HO.XRAY 08:26 | PROVIDERS: PCP Internal Medicine; Visit Provider Internal Medicine | DX: M17.0 Bilateral primary osteoarthritis of knee (principal); M54.16 Radiculopathy, lumbar region; M47.816 Spondylosis without myelopathy or radiculopathy, lumbar region; Z98.890 Other specified postprocedural states | CPT/HCPCS: 73565; 99212 ==